=== PATIENT | female | born 1965 | race Caucasian/White ===

== ENCOUNTER 2022-06-26 10:21 | Outpatient (CLI) | payer OTHER, SELFPAY | END 2022-06-26 10:22 | disposition home or self-care (01) | LOC: AMB 07-15 12:59 | PROVIDERS: PCP Physician Assistant; Visit Provider Family Medicine | DX: S29.9XXA Unspecified injury of thorax, initial encounter (principal); V49.9XXA Car occupant (driver) (passenger) injured in unspecified traffic accident, initial encounter; Y92.410 Unspecified street and highway as the place of occurrence of the external cause | CPT/HCPCS: A0425; A0429 ==

== ENCOUNTER 2022-06-26 11:13 | Emergency (ER) | payer OTHER, SELFPAY ==
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
[2022-06-26 11:15] VITALS: O2SAT 98
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
[2022-06-26 11:20] VITALS: BP 158/85; PULSE 91; RESP 18; O2SAT 98
[2022-06-26 11:30] VITALS: BP 154/89; PULSE 91; RESP 18; O2SAT 98
[2022-06-26 11:50] VITALS: BP 169/101; PULSE 85; RESP 18; O2SAT 98
[2022-06-26 12:00] VITALS: BP 153/82; PULSE 86; RESP 18; O2SAT 98
[2022-06-26 12:30] VITALS: BP 154/105; PULSE 83; RESP 18; O2SAT 98
== END 2022-06-26 13:16 | disposition other institution (70) ==
PROVIDERS: Emergency Provider Family Medicine; PCP Physician Assistant
DX: M79.672 Pain in left foot (principal); S22.20XA Unspecified fracture of sternum, initial encounter for closed fracture; V43.52XA Car driver injured in collision with other type car in traffic accident, initial encounter
CPT/HCPCS: 71250; 73630; 93005; 94761; 99284; 99285; 99291; G0390

== ENCOUNTER 2022-06-26 12:45 | Outpatient (CLI) | payer OTHER, SELFPAY | END 2022-06-26 12:46 | disposition home or self-care (01) | LOC: AMB 07-14 02:45 | PROVIDERS: PCP Physician Assistant; Visit Provider Family Medicine | DX: S22.20XA Unspecified fracture of sternum, initial encounter for closed fracture (principal) | CPT/HCPCS: A0425; A0427 ==